=== PATIENT | female | born 1975 | race Caucasian/White ===

== ENCOUNTER 2017-03-14 11:16 | Emergency (ER) | payer BC ==
[~2017-03-14] VITALS: Ht 160 cm; Wt 61.2 kg
--- NOTE | 2017-03-14 11:43 | NUR ---
42 years old female presents to er with family c/o left foot pain injury last night, no swelling noted awaiting for x-ray.
--- NOTE | 2017-03-14 12:09 | NUR ---
left foot x-ray completed.
--- NOTE | 2017-03-14 13:48 | NUR ---
Patient discharged to home in stable conditon. Written and verbal after care instructions given. Patient verbalizes understanding of instructions.
== END 2017-03-14 13:51 | disposition home or self-care (01) ==
LOC: ER 11:16
DX: S93.402A Sprain of unspecified ligament of left ankle, initial encounter (principal); M20.10 Hallux valgus (acquired), unspecified foot; Z88.5 Allergy status to narcotic agent; W10.9XXA Fall (on) (from) unspecified stairs and steps, initial encounter; Y92.89 Other specified places as the place of occurrence of the external cause; Y93.89 Activity, other specified; Y99.8 Other external cause status
CPT/HCPCS: 73600; 73620; 99284; A4663